=== PATIENT | male | born 1990 | race American Indian/Alaskan Native ===

== ENCOUNTER 2016-10-04 13:53 | Emergency (ER) | payer MEDICAID, OTHER ==
[2016-10-04 14:41] VITALS: TEMP 97.9
[2016-10-04] MEDS ORDERED: Sodium Chloride 0.9% 1,000 ML IV ONE (14:53)
--- NOTE | 2016-10-04 14:56 | C.PDOC ---
History Of Present Illness 26 yr old with PMHx of migraine and headache, presents to the ER for evaluation of headache for 1 day. Patient reports 1 episode of vomiting yesterday and nausea today. Patient states it feels like her typical migraine, associated with photophobia. Patient denies fever, chills, abdominal pain, back pain, weakness or numbness. Time Seen by Provider: 10/04/16 14:47 Chief Complaint (Nursing): Headache History Per: Patient History/Exam Limitations: no limitations Onset/Duration Of Symptoms: Days (1) Current Symptoms Are (Timing): Still Present Severity: Mild Quality: Aching Preceeding Symptoms: Known Migraine Symptoms Associated Symptoms: Photophobia, Nausea Past Medical History Reviewed: Historical Data, Nursing Documentation, Vital Signs Vital Signs: Last Vital Signs Temp 97.9 F 10/04/16 14:40 Pulse 61 10/04/16 16:35 Resp 15 10/04/16 16:35 BP 145/86 10/04/16 16:35 Pulse Ox 100 10/04/16 16:35 - Medical History PMH: Migraine Surgical History: No Surg Hx - [facility] Procedures TETANUS TOXOID ADMINIST (02/17/15) Family History: States: No Known Family Hx - Social History Hx Tobacco Use: Yes Hx Alcohol Use: No Hx Substance Use: Yes - Immunization History Hx Tetanus Toxoid Vaccination: No Hx Influenza Vaccination: No Hx Pneumococcal Vaccination: No Review Of Systems Except As Marked, All Systems Reviewed And Found Negative. Constitutional: Negative for: Fever, Chills Gastrointestinal: Positive for: Nausea, Vomiting (1x yesterday). Negative for: Abdominal Pain Neurological: Positive for: Headache. Negative for: Weakness, Numbness Physical Exam - Physical Exam Appears: Well, Non-toxic, No Acute Distress Skin: Normal Color, Warm, Dry, No Rash Head: Atraumatic, Normacephalic Eye(s): bilateral: Normal Inspection, PERRL, EOMI Oral Mucosa: Moist Throat: Normal, No Erythema, No Exudate, No Drooling Neck: Normal, Normal ROM, Supple Chest: Symmetrical, No Tenderness Cardiovascular: Rhythm Regular, No Murmur Respiratory: Normal Breath Sounds, No Rales, No Rhonchi, No Wheezing Gastrointestinal/Abdominal: Normal Exam, Soft, No Tenderness, No Guarding, No Rebound Extremity: Normal ROM, No Swelling Neurological/Psych: Oriented x3, Normal Speech, Normal Motor Gait: Steady ED Course And Treatment O2 Sat by Pulse Oximetry: 98 Progress Note: Treated with IVF NSS, reglan and toradol. On re-evaluation feeling better, neuro intact, ambulating with steady gait Reassessment Condition: Improved Medical Decision Making Medical Decision Making: PLAN: * Toradol IVP * Reglan IV * Sodium Chloride IV Disposition Counseled Patient/Family Regarding: Diagnosis, Need For Followup - Disposition Referrals: [facility] [Outside] [facility] [Outside] Disposition: HOME/ ROUTINE Disposition Time: 16:00 Condition: GOOD Instructions: Migraine Headache (ED) Forms: Work Excuse - POA Present On Arrival: None - Clinical Impression Clinical Impression: Headache - PA / PARTS CHASER / Resident Statement MD/DO has reviewed & agrees with the documentation as recorded. - Scribe Statement The provider has reviewed the documentation as recorded by the Scribe Consuelo Peraza All medical record entries made by the Scribe were at my direction and personally dictated by me. I have reviewed the chart and agree that the record accurately reflects my personal performance of the history, physical exam, medical decision making, and the department course for this patient. I have also personally directed, reviewed, and agree with the discharge instructions and disposition.
[2016-10-04 16:37] VITALS: BP 145/86; PULSE 61; RESP 15
[2016-10-04 17:32] VITALS: O2SAT 98
== END 2016-10-04 16:35 | disposition home or self-care (01) ==
LOC: C.ER 13:53
DX: R51 Headache (principal)
CPT/HCPCS: 96365; 96375; 99284; J1885; J2765; J7040